=== PATIENT | female | born 1945 | race Caucasian/White ===

== ENCOUNTER 2016-11-19 12:48 | Emergency (ER) | payer MEDICARE, OTHER | END 2016-11-19 16:25 | disposition home or self-care (01) | LOC: ER1 12:48 | DX: S09.90XA Unspecified injury of head, initial encounter (principal); S13.9XXA Sprain of joints and ligaments of unspecified parts of neck, initial encounter; H11.31 Conjunctival hemorrhage, right eye; I10 Essential (primary) hypertension; W01.0XXA Fall on same level from slipping, tripping and stumbling without subsequent striking against object, initial encounter | CPT/HCPCS: 70450; 72125; 99284 ==

== ENCOUNTER → 2016-11-24 | Outpatient (CLI) | payer MEDICARE, OTHER | LOC: MRI 08:28 | DX: H53.40 Unspecified visual field defects (principal) | CPT/HCPCS: 70553; A9577 ==